=== PATIENT | male | born 1970 | race Caucasian/White ===

== ENCOUNTER 2018-11-29 08:23 | Emergency (ER) | payer OTHER ==
[~2018-11-29] VITALS: Ht 167.6 cm; Wt 81.1 kg
[2018-11-29 08:29] VITALS: Ht 167.6 cm; Wt 81.1 kg
[2018-11-29] MEDS ORDERED: KETOROLAC 30 MG INJ IV STA (10:31)
[2018-11-29] MEDS ORDERED: ONDANSETRON 4 MG INJ IV STA (10:31)
[2018-11-29] MEDS ORDERED: SOD CHLORIDE 0.9% 1,000 ML IV ONE (11:00)
[2018-11-29] MEDS ORDERED: NAPR-985 PO (12:25)
[2018-11-29] MEDS ORDERED: TAMS-14 PO (12:25)
[2018-11-29] MEDS ORDERED: CIPR500T4 PO (12:25)
[2018-11-29] MEDS ORDERED: CEFTRIAXONE 1 GM/50 ML (PMX) 50 ML IVPB ONE (12:30)
--- NOTE | 2018-11-29 13:03 | ERD ---
ER Documentation Chief Complaint Chief Complaint Complains of a left rib pain x 3 days HPI 48-year-old male patient with no significant past medical history presents to the ED complaining of left abdominal pain that started about 3 days ago. Denies any dysuria, urgency, frequency, hematuria. Reports that he is nauseous but denies any vomiting. Denies any chest pain, shortness of breath, dyspnea on exertion. Denies any abdominal trauma. ROS All systems reviewed and are negative except as per history of present illness. Medications Home Meds Active Scripts Tamsulosin Hcl* (Flomax*) 0.4 Mg Cap.er.24h, 0.4 MG PO BID, #30 CAP Prov:ESTELLA RUBALCAVA PA-C 11/29/18 Naproxen* (Naprosyn*) 500 Mg Tablet, 500 MG PO BID PRN for PAIN AND/OR INFLAMMATION, #30 TAB Prov:ESTELLA RUBALCAVA PA-C 11/29/18 Ciprofloxacin Hcl* (Ciprofloxacin Hcl*) 500 Mg Tablet, 500 MG PO BID for 10 Days, TAB Prov:ESTELLA RUBALCAVA PA-C 11/29/18 Allergies Allergies: Coded Allergies: No Known Allergy (Unverified , 11/29/18) PMhx/Soc Medical and Surgical Hx: pt denies Medical Hx, pt denies Surgical Hx Hx Alcohol Use: No Hx Substance Use: No Hx Tobacco Use: No Smoking Status: Never smoker FmHx Family History: No diabetes, No coronary disease Physical Exam Vitals Vital Signs Date Temp Pulse Resp B/P (MAP) Pulse Ox O2 O2 Flow FiO2 Time Delivery Rate 11/29/18 98.6 60 20 142/91 99 08:29 (108) Physical Exam Const: [id number], well-nourished. In no acute distress. Head: Atraumatic, normocephalic Eyes: Normal Conjunctiva without injection. No purulent discharge. ENT: Normal external ear, nose. Moist oropharynx without tonsillar exudates. Non -erythematous pharynx. Uvula midline. No drooling. No trismus. Neck: No cervical midline tenderness. Full range of motion. No meningismus. No cervical lymphadenopathy. No JVD. Resp: Clear to auscultation bilaterally. No wheezing, rhonchi, rales, or crac kles. No accessory muscle use. No retractions. Cardio: Regular rate and rhythm. No murmurs, rubs or gallops. Abd: Soft, mid left quadrant abdominal pain, non distended. Normal bowel sounds. No palpable masses. No rebound tenderness. No guarding. Negative McBurney's point. Negative psoas sign. Negative obturator sign. Skin: No petechiae or rashes Back: No midline tenderness. No CVA tenderness. Ext: No cyanosis, or edema. Neur: Awake and alert. Normal gait. Normal coordination. Psych: Normal Mood and Affect Results 24 hrs Laboratory Tests Test 11/29/18 10:30 White Blood Count 12.6 10^3/ul Red Blood Count 5.50 10^6/ul Hemoglobin 15.9 g/dl Hematocrit 48.2 % Mean Corpuscular Volume 87.6 fl Mean Corpuscular Hemoglobin 28.9 pg Mean Corpuscular Hemoglobin Concent 33.0 g/dl Red Cell Distribution Width 13.8 % Platelet Count 244 10^3/UL Mean Platelet Volume 9.4 fl Immature Granulocytes % 0.500 % Neutrophils % 85.1 % Lymphocytes % 8.3 % Monocytes % 5.3 % Eosinophils % 0.5 % Basophils % 0.3 % Nucleated Red Blood Cells % 0.0 /100WBC Immature Granulocytes # 0.060 10^3/ul Neutrophils # 10.7 10^3/ul Lymphocytes # 1.1 10^3/ul Monocytes # 0.7 10^3/ul Eosinophils # 0.1 10^3/ul Basophils # 0.0 10^3/ul Nucleated Red Blood Cells # 0.0 10^3/ul Urine Color YELLOW Urine Clarity CLOUDY Urine pH 5.0 Urine Specific [place] 1.016 Urine Ketones NEGATIVE mg/dL Urine Nitrite NEGATIVE mg/dL Urine Bilirubin NEGATIVE mg/dL Urine Urobilinogen NEGATIVE mg/dL Urine Leukocyte Esterase NEGATIVE Warren/ul Urine Microscopic RBC > 182 /HPF Urine Microscopic WBC 29 /HPF Urine Bacteria FEW /HPF Urine Hemoglobin 3+ mg/dL Urine Glucose NEGATIVE mg/dL Urine Total Protein 1+ mg/dl Sodium Level 141 mmol/L Potassium Level 4.8 mmol/L Chloride Level 107 mmol/L Carbon Dioxide Level 27 mmol/L Anion Gap 7 Blood Urea Nitrogen 16 mg/dl Creatinine 1.13 mg/dl Est Glomerular Filtrat Rate mL/min > 60 mL/min Glucose Level 120 mg/dl Calcium Level 9.6 mg/dl Total Bilirubin 0.9 mg/dl Direct Bilirubin 0.00 mg/dl Indirect Bilirubin 0.9 mg/dl Aspartate Amino Transf (AST/SGOT) 38 IU/L Alanine Aminotransferase (ALT/SGPT) 26 IU/L Alkaline Phosphatase 106 IU/L Total Protein 8.5 g/dl Albumin 4.5 g/dl Globulin 4.00 g/dl Albumin/Globulin Ratio 1.12 Lipase 167 U/L Current Medications Medications Dose Sig/Aracely Start Time Status Last (Trade) Ordered Route PRN Stop Time Admin Dose Reason Admin Ketorolac 30 mg ONCE STAT 11/29/18 DC 11/29/18 Tromethamine IV 10:31 10:37 (Toradol) 11/29/18 10:33 Ondansetron 4 mg ONCE STAT 11/29/18 DC 11/29/18 HCl (Zofran IV 10:31 10:36 Inj) 11/29/18 10:33 Sodium 1,000 ml @ Q1H ONCE 11/29/18 DC 11/29/18 Chloride 1,000 mls/hr IV 11:00 10:36 11/29/18 11:59 Ceftriaxone 50 ml @ ONCE ONCE 11/29/18 DC 11/29/18 Sodium 100 mls/hr IVPB 12:30 12:34 11/29/18 12:59 Procedures/MDM 38-year-old male patient with no significant past medical history presents to ED complaining of left mid abdominal pain that started about 3 days ago. Patient is afebrile and nontoxic-appearing. Patient was further worked up with CBC, CMP, lipase, UA, CT of the abdomen and pelvis without contrast. Patient's pain and symptoms have improved after treatment with 30 mg IV ketorolac, 1 L of normal saline. CBC: No leukocytosis. No e/o of systemic infection. No e/o anemia. CMP: No e/o severe acidosis, alkalosis, renal failure, diabetic ketoacidosis, liver disease Lipase within normal limits. Urine: No leukocyte esterase, no nitrites, 3+ hematuria. IMPRESSION: 1. MILD LEFT-SIDED HYDROURETERONEPHROSIS AND ENLARGEMENT OF THE LEFT KIDNEY SECONDARY TO A 3.2 MM STONE WITHIN THE LEFT DISTAL URETER, LOCATED APPROXIMATELY 3.0 CM FROM THE LEFT UVJ. 2. The right kidney is unremarkable without evidence of obstructive uropathy. 3. No evidence of bowel obstruction. The appendix is within normal limits. 4. Thickening of the wall the bladder, cannot exclude infectious versus inflammatory cystitis. 5. Small fat-containing left inguinal hernia. 6. Fatty liver. Patient has a urinary tract infection with his nephrolithiasis. Low suspicion for septic renal stone, testicular torsion, gastritis, GERD, peptic ulcer disease, cholecystitis, choledocholithiasis, cholangitis, pancreatitis, appendicitis, bowel obstruction, ileus, volvulus, pyelonephritis, hepatitis, perforated viscus, diverticulitis, abdominal hernia, acute abdomen, mesenteric ischemia or other emergent conditions. Discussed with Dr. Ocampo who agreed with the management and discharge plan. Diagnosis: Kidney stone, Urinary tract infection Discharge medications: Flomax, Naproxen, Ciprofloxacin Follow up with primary care physician in 1-2 days for referral to proposal development manager. Instructed patient to return to the ED sooner for any worsening symptoms. Patient's questions were answered. Patient understood and agreed with discharge plan. Patient discharged stable. Departure Diagnosis: Primary Impression: Kidney stone Additional Impression: Urinary tract infection Urinary tract infection type: site unspecified Hematuria presence: without hematuria Qualified Codes: N39.0 - Urinary tract infection, site not specified Condition: Stable Patient Instructions: Urinary Tract Infections in Women, Identifying Kidney Stones, Kidney Stones: Your Evaluation, Preventing Kidney Stones, Kidney Stone W/ Colic Referrals: [facility] YOU HAVE RECEIVED A MEDICAL SCREENING EXAM AND THE RESULTS INDICATE THAT YOU DO NOT HAVE A CONDITION THAT REQUIRES URGENT TREATMENT IN THE EMERGENCY DEPARTMENT. FURTHER EVALUATION AND TREATMENT OF YOUR CONDITION CAN WAIT UNTIL YOU ARE SEEN IN YOUR DOCTORS OFFICE WITHIN THE NEXT 1-2 DAYS. IT IS YOUR RESPONSIBILITY TO MAKE AN APPOINTMENT FOR FOLOW-UP CARE. IF YOU HAVE A PRIMARY DOCTOR --you should call your primary doctor and schedule an appointment IF YOU DO NOT HAVE A PRIMARY DOCTOR YOU CAN CALL OUR PHYSICIAN REFERRAL HOTLINE AT IF YOU CAN NOT AFFORD TO SEE A PHYSICIAN YOU CAN CHOSE FROM THE FOLLOWING [facility] [address] [facility] [address] [facility] [address] [facility] [address] [facility] [facility] [address] [facility]. [facility] [address] [facility]. [facility] YOU HAVE RECEIVED A MEDICAL SCREENING EXAM AND THE RESULTS INDICATE THAT YOU DO NOT HAVE A CONDITION THAT REQUIRES URGENT TREATMENT IN THE EMERGENCY DEPARTMENT. FURTHER EVALUATION AND TREATMENT OF YOUR CONDITION CAN WAIT UNTIL YOU ARE SEEN IN YOUR DOCTORS OFFICE WITHIN THE NEXT 1-2 DAYS. IT IS YOUR RESPONSIBILITY TO MAKE AN APPOINTMENT FOR FOLOW-UP CARE. IF YOU HAVE A PRIMARY DOCTOR --you should call your primary doctor and schedule and appointment IF YOU DO NOT HAVE A PRIMARY DOCTOR YOU CAN CALL OUR PHYSICIAN REFERRAL HOTLINE AT . IF YOU CAN NOT AFFORD TO SEE A PHYSICIAN YOU CAN CHOSE FROM THE FOLLOWING [facility] INSTITUTIONS: [facility] [address] [place] [address] [facility] [address] [place], [place] [id number] [place] [address] [address] [place] [address] [facility] URGENT CARE/SPECIALTIES Additional Instructions: Call your primary care doctor TOMORROW for an appointment during the next 2-3 days.See the doctor sooner or return here if your condition worsens before your appointment time. ESTELLA RUBALCAVA PA-C Nov 29, 2018 13:03
[2018-11-29 13:13] VITALS: BP 128/77; PULSE 54; RESP 18
== END 2018-11-29 13:15 | disposition home or self-care (01) ==
LOC: FTE 08:23
DX: N20.0 Calculus of kidney (principal); N39.0 Urinary tract infection, site not specified
CPT/HCPCS: 36415; 74176; 80053; 81001; 83690; 85025; 87086; 96361; 96365; 96375; 99285; J0696; J1885; J2405; J7030